=== PATIENT | male | born 2000 | race Caucasian/White ===

== ENCOUNTER 2021-08-14 13:48 | Outpatient (CLI) | payer OTHER, SELFPAY ==
--- NOTE | 2021-08-18 16:38 | WPDHOMESLEEP ---
Sleep Study - Home Unattended Date of Study: 08/14/21 Ordering Provider: Lorelei Askew NP Interpreting Provider: Ananya Guidry, DO Home Sleep Study Type: Watch ABDELRAHMAN Height: 1.85 m Weight: 133.81 kg Body Mass Index: 38.9 Neck Circumference (inches): 18 [place]: 11 Reason for Sleep Study Unrefreshing sleep, multiple nighttime awakenings. Sleep History The patient is a 21-year-old male with anxiety and hypertension had a home sleep test ordered by his primary care for evaluation of sleep apnea. The patient rarely awakens from sleep short of breath. He constantly awakens at night with heartburn, belching or cough. He constantly snores loud enough that others complain. He constantly has trouble sleeping when he has a cold. He denies waking up gasping for air throughout the night. He denies having breathing problems at night observed by himself or others. He constantly sweats excessively at night. He rarely has heart palpitations or irregular heartbeats during the night. He denies falling asleep during the day and while driving. He rarely experiences loss of muscle tone when extremely emotional. He rarely feels unable to move while waking up or falling asleep. He frequently has trouble at work due to sleepiness. He denies hypnagogic / hypnopompic hallucinations. He rarely has nightmares. He occasionally remembers his dreams. He constantly has thoughts racing through his mind. He rarely feels sad or depressed. He constantly has anxiety. He rarely has muscular tension. He frequently notices parts of his body jerk. He occasionally kicks during the night. He frequently has crawling and aching feelings in his legs as well as leg pain during the night. He constantly grinds his teeth during sleep and occasionally awakens with morning jaw pain. He is rarely bothered by pain during the day and rarely awakened by pain during the night. He occasionally wakes up feeling stiff in the morning with sore achy muscles. He frequently wakes up with pain in the neck, spine rest of the joints. He goes to bed around 10:00 p.m. weekdays and between 11:00 p.m. and midnight on the weekends. It takes him 30-60 minutes to fall asleep. He wakes up 5 times throughout the night for unknown reasons. When he awakens, he will lay there are dry to fall back asleep. He can fall back asleep within 5 minutes. He wakes up at 7:30 a.m. on weekdays and 10:00 a.m. on the weekends he typically gets 8 hours of sleep per night. He will stay in bed for 10-20 minutes after waking up the morning. He currently lives with 2 roommates. He does not consume any caffeinated beverages within 2 hours of bedtime. He does not engage in physical exercise before bedtime. He will read and watch television before falling asleep. He will take naps in the afternoon or the evening but they are not refreshing. He does consume caffeinated beverages throughout the day. He does use alcohol and recreational drugs. He denies tobacco use. [facility] Past Medical History Medical History Abnormal fasting glucose (07/10/21) Fasting glucose 103 with hemoglobin A1c 5.2 on 07/10/2021. Anxiety BMI 37.0-37.9, adult Elevated liver enzymes (07/10/21) ALT elevated at 92 with AST normal at 37 on 07/10/2021. Encounter to establish care Hypersomnia Hypertension Mixed hyperlipidemia (07/10/21) total cholesterol 195, triglycerides 88, HDL 41 and LDL elevated at 138 on 07/10/2021. Screening for diabetes mellitus Seasonal allergies Snoring Vitamin D deficiency level normal at 32.8 on 07/10/2021. Surgical History Surgical History History of placement of ear tubes Hx of wisdom tooth extraction Family History Family History Father Diabetes mellitus Hypertension Depression Mother Thyroid disease Grandparent Hypertensio
[2021-08-18 16:40] VITALS: BMI 38.9
== END 2021-08-15 11:01 | disposition home or self-care (01) ==
LOC: ANHCSM 13:49
PROVIDERS: PCP Nurse Practitioner Family; Visit Provider Nurse Practitioner Family
DX: G47.10 Hypersomnia, unspecified (principal)
CPT/HCPCS: 95800